=== PATIENT | female | born 1955 | race African-American/Black ===

== ENCOUNTER 2019-08-23 14:01 | Emergency (ER) | payer MEDICARE, OTHER ==
[~2019-08-23] VITALS: Ht 172.7 cm; Wt 110.0 kg
[~2019-08-23 14:01] MED LIST: BENAZEPRIL; HYDROCHLOROTHIAZIDE; NORCO
[2019-08-23] MEDS ORDERED: ALBUTEROL (0.083%) 2.5MG/3ML NEB HHN STA (16:40)
[2019-08-23] MEDS ORDERED: IPRATROPIUM BROMIDE (0.02%) 0.5MG/2.5ML NEB HHN STA (16:40)
[2019-08-23 18:05] VITALS: BP 143/97
== END 2019-08-23 18:36 | disposition home or self-care (01) ==
LOC: ER 14:01
DX: J06.9 Acute upper respiratory infection, unspecified (principal); I10 Essential (primary) hypertension; Z90.49 Acquired absence of other specified parts of digestive tract; Z98.84 Bariatric surgery status
CPT/HCPCS: 71045; 94640; 99283

== ENCOUNTER 2019-10-29 16:57 | Emergency (ER) | payer OTHER ==
[~2019-10-29] VITALS: Ht 172.7 cm; Wt 109.0 kg
[2019-10-29] MEDS ORDERED: CLONIDINE 0.2MG TABLET PO ONE (18:15)
[2019-10-29] MEDS ORDERED: AMLODIPINE 10MG TABLET PO ONE (18:15)
[2019-10-29 19:17] VITALS: BP 146/108
== END 2019-10-29 19:18 | disposition home or self-care (01) ==
LOC: ER 16:57
DX: I10 Essential (primary) hypertension (principal); Z79.899 Other long term (current) drug therapy; Z90.49 Acquired absence of other specified parts of digestive tract
CPT/HCPCS: 99283

== ENCOUNTER 2024-02-12 20:57 | Emergency (ER) | payer MEDICARE, OTHER ==
[~2024-02-12] VITALS: Ht 172.7 cm; Wt 120.0 kg
[2024-02-12 22:31] VITALS: TEMP 98.7; O2SAT 100
[2024-02-12] MEDS ORDERED: PERM60CR4 TP (23:11)
[2024-02-13 00:26] VITALS: BP 167/117; PULSE 66; RESP 16; O2SAT 100
== END 2024-02-13 00:27 | disposition home or self-care (01) ==
LOC: ER 20:57
DX: B85.2 Pediculosis, unspecified (principal); F32.9 Major depressive disorder, single episode, unspecified; I10 Essential (primary) hypertension; Z90.49 Acquired absence of other specified parts of digestive tract; Z79.899 Other long term (current) drug therapy; Z98.890 Other specified postprocedural states
CPT/HCPCS: 99282

== ENCOUNTER 2024-06-17 19:18 | Emergency (ER) | payer MEDICARE ==
[~2024-06-17] VITALS: Ht 170.2 cm; Wt 119.7 kg
[~2024-06-17 19:18] MED LIST changes: +PERM60CR4 TP
[2024-06-17 19:24] VITALS: O2SAT 99
[2024-06-17 21:33] LABS: BASOPHILS % 0.3 % (0.0-2.0); EOSINOPHILS % 0.8 % (0.0-5.0); HEMOGLOBIN. 14.8 g/dL (12.0-16.0); LYMPHOCYTES % 18.2 % (20.0-50.0); MEAN CORPUSCULAR HEMOGLOBIN 28.9 pg (28.0-32.0); MEAN CORPUSCULAR HGB CONC 32.2 g/dL (31.0-37.0); MEAN CORPUSCULAR VOLUME 89.8 fL (81.0-99.0); MEAN PLATELET VOLUME 8.6 fl (7.4-10.4); MONOCYTES % 8.3 % (2.0-8.0); NEUTROPHILS % 72.4 % (40.0-76.0); PLATELET 311 x1000/uL (130-400); RED BLOOD CELL COUNT 5.13 mill/uL (4.2-5.4); RED CELL DISTRIBUTION WIDTH 14.8 % (11.6-14.6); WHITE BLOOD COUNT 14.3 x1000/uL (4.5-11.0)
[2024-06-17 21:41] LABS: POTASSIUM 3.2 mEq/L (3.5-5.1)
[2024-06-17 21:43] LABS: CALCIUM 10.9 mg/dL (8.7-10.4)
[2024-06-17 21:47] LABS: CREATININE 1.4 mg/dL (0.6-1.0)
[2024-06-17 23:40] LABS: ALANINE AMINOTRANSFERASE 9 IU/L (10-49); ALBUMIN 4.5 g/dL (3.2-4.8); ASPARTATE AMINOTRANSFERASE 23 IU/L (<34); BILIRUBIN DIRECT 0.1 mg/dL (<=3.0); BILIRUBIN TOTAL 0.4 mg/dL (0.1-1.0)
[2024-06-18] MEDS ORDERED: AMOX1TAB16 MT (00:13)
[2024-06-18] MEDS ORDERED: LACT1TAB26 MT (00:14)
[2024-06-18 00:20] VITALS: BP 120/84; PULSE 98; RESP 19; TEMP 36.83628; O2SAT 99
== END 2024-06-18 00:39 | disposition home or self-care (01) ==
LOC: ER 19:18
DX: J18.9 Pneumonia, unspecified organism (principal); K52.9 Noninfective gastroenteritis and colitis, unspecified; I10 Essential (primary) hypertension; F32.A Depression, unspecified; Z90.49 Acquired absence of other specified parts of digestive tract; Z98.84 Bariatric surgery status
CPT/HCPCS: 36415; 71045; 80048; 80076; 85025; 99284